=== PATIENT | female | born 1990 | race Caucasian/White ===

== ENCOUNTER 2023-07-31 11:24 | Day surgery (SDC) | payer BC ==
[2023-07-25 15:54] LABS: BASOPHILS # (AUTO) 0.1 X10'3 (0-0.2); EOSINOPHILS # (AUTO) 0.1 X10'3 (0-0.9); EOSINOPHILS % (AUTO) 0.9 % (0-6); LYMPHOCYTES # (AUTO) 2.8 X10'3 (1.1-4.8); LYMPHOCYTES % (AUTO) 30.6 % (21-51); MEAN CORPUSCULAR HEMOGLOBIN 24.6 PG (27.0-31.0); MEAN CORPUSCULAR HGB CONC 31.5 g/dL (33.0-36.5); MEAN CORPUSCULAR VOLUME 78.2 FL (78-98); MEAN PLATELET VOLUME 8.8 FL (7.4-10.4); MONOCYTES # (AUTO) 0.9 X10'3 (0-0.9); MONOCYTES % (AUTO) 9.5 % (2-12); NEUTROPHILS # (AUTO) 5.2 X10'3 (1.8-7.7); PRE OP HEMATOCRIT 39.4 % (35.0-45.0); PRE OP HEMOGLOBIN 12.4 g/dL (12.0-16.0); PRE OP PLATELET COUNT 333 X10'3 (140-440); RED BLOOD COUNT 5.04 X10'6 (4.20-5.60); RED CELL DISTRIBUTION WIDTH 15.5 % (11.5-14.5)
[2023-07-25 16:07] LABS: URINE HCG NEGATIVE (NEG)
[2023-07-25 16:10] LABS: ALBUMIN 3.6 G/DL (3.4-5.0); ALBUMIN/GLOBULIN RATIO 0.9 (1.1-1.5); ALKALINE PHOSPHATASE 102 IU/L (46-116); BLOOD UREA NITROGEN 14 MG/DL (7-18); BUN/CREATININE RATIO 20.9 (10.0-20.0); CALCIUM 8.3 MG/DL (8.5-10.1); CHLORIDE 103 MMOL/L (99-107); CREATININE 0.67 MG/DL (0.40-0.90); PRE OP ALT 19 U/L (30-65); PRE OP ANION GAP 6 (8-16); PRE OP AST 25 U/L (10-37); PRE OP BILIRUB, TOTAL 0.3 MG/DL (0.0-1.0); PRE OP GLUCOSE 131 MG/DL (70-104); PRE OP POTASSIUM 3.9 MMOL/L (3.4-5.1); PRE OP SODIUM 138 MMOL/L (135-145); TOTAL CARBON DIOXIDE 28.6 MMOL/L (24-32); TOTAL PROTEIN 7.8 G/DL (6.4-8.2); eGFR > 90 ML/MIN
[~2023-07-31] VITALS: Ht 170.2 cm; Wt 90.7 kg
[2023-07-31] VITALS (10 sets, daily range): BP systolic 98–128; BP diastolic 53–83; PULSE 46–104; RESP 9–19; TEMP 97.8; O2SAT 95–100
[2023-07-31] MEDS: ceFOXitin 2GM-NS 100mL ADDvant 100 ML IV ONE (05:30)
[~2023-07-31 11:24] MED LIST: ATOG60TA PO; RIZA10TA28; UBRO100T
[2023-07-31] MEDS: ringers solution, lacted 1,000 ML IV SCH ×2 (11:46→15:23)
[2023-07-31] MEDS: famotidine 20mg tablet PO ONE (11:46)
[2023-07-31 12:35] LABS: BILIRUBIN,URINE NEGATIVE (Neg); CLARITY,URINE SLIGHTLY CLOUDY (Clear); COLOR,URINE YELLOW (Yellow); GLUCOSE, URINE NEGATIVE (Neg); KETONES,URINE NEGATIVE (Neg); LEUKOCYTE ESTERASE ,URINE NEGATIVE (Neg); NITRITES, URINE NEGATIVE (Neg); OCCULT BLOOD,URINE NEGATIVE (Neg); PROTEIN,URINE TRACE mg/dl (Neg)
[2023-07-31] MEDS ORDERED: ondansetron/PF 4mg/2ml inj IV PRN (12:35)
[2023-07-31] MEDS ORDERED: proCHLORperazine 10 MG/2 ml inj IV PRN (12:35)
[2023-07-31] MEDS ORDERED: meperidine/PF 25mg/ml syringe IV PRN ×3 (12:35)
[2023-07-31] MEDS ORDERED: morphine 4 MG/ML inj SYRINge IV PRN (12:35)
[2023-07-31] MEDS ORDERED: morphine 2 MG/ML inj. syringe IV PRN (12:35)
[2023-07-31] MEDS ORDERED: labetalol 20mg/4ml (5mg/ml) syringe IV PRN (12:35)
[2023-07-31] MEDS ORDERED: hydrALAZINE 20mg/ml inj. IV PRN (12:35)
[2023-07-31 12:41] LABS: UA COLLECTION TYPE NON-SPECIFIED
[2023-07-31 12:42] LABS: BACTERIA,URINE FEW /HPF (Neg); MUCUS STRANDS MODERATE /LPF (Neg); RBC,URINE 0-2 /HPF (0-2); SQUAMOUS EPITHELIAL CELL,UR MANY /LPF (FEW); WBC,URINE 0-4 /HPF (0-4)
[2023-07-31] MEDS ORDERED: sevoflurane 250ml liquid IH ONE (13:47)
[2023-07-31] MEDS ORDERED: fentaNYL/PF 50MCG/1 ML 2ML syringe ONE (13:51)
[2023-07-31] MEDS ORDERED: midazolam 1 mg/ML 2ml injection ONE (13:51)
[2023-07-31] MEDS ORDERED: rocuronium 10mg/ml inj IV ONE (14:01)
[2023-07-31] MEDS ORDERED: propofol inj 20 ML IV ONE (14:01)
[2023-07-31] MEDS ORDERED: LIDOcaine 2% (20mg/ml) 5ml vial ONE (14:01)
[2023-07-31] MEDS ORDERED: dexamethasone sod phosphate 4mg/ml inj. ONE (14:02)
[2023-07-31] MEDS ORDERED: ondansetron/PF 4mg/2ml inj ONE (14:02)
[2023-07-31] MEDS: BUPIVAcaine 0.25% w/Epi /PF 30ml vial IJ ONE (14:20)
[2023-07-31] MEDS ORDERED: neostigmine methylsulfate 1 MG/ML 10ml vial ONE (14:27)
[2023-07-31] MEDS ORDERED: glycopyrrolate 0.2mg/ml inj ONE (14:27)
[2023-07-31] MEDS: acetaminophen 1,000mg/100ml IV 100 ML IV ONE (15:22)
[2023-07-31] MEDS: ketorolac trometh. 30mg/ml inj. IV ONE (15:23)
== END 2023-07-31 16:08 | disposition home or self-care (01) ==
LOC: PAS 11:24
PROVIDERS: ATTEND Specialist
DX: Z30.2 Encounter for sterilization (principal); G43.909 Migraine, unspecified, not intractable, without status migrainosus; Z87.891 Personal history of nicotine dependence; Z79.2 Long term (current) use of antibiotics; Z79.891 Long term (current) use of opiate analgesic; Z79.899 Other long term (current) drug therapy; Z98.818 Other dental procedure status; Z88.2 Allergy status to sulfonamides; Z88.1 Allergy status to other antibiotic agents
CPT/HCPCS: 36415; 58670; 80053; 81001; 81025; 82948; 85025; J0131; J0665; J0694; J1100; J1885; J2250; J2405; J2704; J2710; J3010; J3490; J7030; J7120; Z7506; Z7512; A4618; A7000; S0020